=== PATIENT | female | born 1960 | race Caucasian/White ===

== ENCOUNTER 2023-07-02 00:14 | Emergency (ER) | payer BC, OTHER ==
[~2023-07-02] VITALS: Ht 167.6 cm; Wt 57.2 kg
[2023-07-02 02:01] VITALS: BP 150/92; TEMP 98.1; O2SAT 97
== END 2023-07-02 01:50 | disposition home or self-care (01) ==
LOC: ER 00:20
DX: Z00.00 Encounter for general adult medical examination without abnormal findings (principal); F17.210 Nicotine dependence, cigarettes, uncomplicated; Z88.1 Allergy status to other antibiotic agents
CPT/HCPCS: A4606; A4663